=== PATIENT | female | born 1955 | race Two or more races ===

== ENCOUNTER → 2021-02-08 | Outpatient (REF) | LOC: M LABSMTC 10:25 | PROVIDERS: ATTEND Pediatrics | DX: Z20.822 Contact with and (suspected) exposure to COVID-19 (principal) ==

== ENCOUNTER → 2022-01-07 | Outpatient (CLI) | payer MEDICARE, OTHER ==
[~2022-01-07] MED LIST: ISOVUE-370 76% 100ML VIAL As Ordered ONE
== END ==
LOC: M RAD 14:47
PROVIDERS: ATTEND Internal Medicine
DX: I77.1 Stricture of artery (principal); K76.0 Fatty (change of) liver, not elsewhere classified; R91.1 Solitary pulmonary nodule
CPT/HCPCS: 71275; Q9967

== ENCOUNTER 2024-02-18 14:05 | Emergency (ER) | payer MEDICARE, OTHER ==
[~2024-02-18] VITALS: Ht 165.1 cm; Wt 82.6 kg
[2024-02-18 14:50] LABS: BASO % 0.2 % (0.0-1.0); EOS % 0.3 % (0.0-3.0); HEMATOCRIT 44.8 % (36.0-47.0); HEMOGLOBIN 16.1 g/dl (12.0-15.5); LYMPH # 2.1 10^3/uL (1.5-5.0); LYMPH % 23.5 % (24.0-44.0); MEAN CORPUSCULAR HEMOGLOBIN 32.9 pg (27.0-33.0); MEAN CORPUSCULAR HGB CONC 35.9 g/dl (32.0-36.5); MEAN CORPUSCULAR VOLUME 91.6 fl (80.0-96.0); MONO # 0.7 10^3/uL (0.0-0.8); MONO % 7.9 % (2.0-8.0); NEUTROPHILS % 67.8 % (36.0-66.0); PLATELET COUNT, AUTOMATED 179 10^3/uL (150-450); RED BLOOD COUNT 4.89 10^6/uL (4.00-5.40); WHITE BLOOD COUNT 8.9 10^3/uL (4.0-10.0)
[2024-02-18 15:16] LABS: CK-MB VALUE MASS < 1.0 NG/ML (<3.6); LIPASE 26 U/L (12-53)
[2024-02-18 15:19] LABS: ALBUMIN 4.4 G/DL (3.2-5.2); ALKALINE PHOSPHATASE 123 U/L (35-104); ALT/SGPT 45 U/L (7.0-40); AST/SGOT 55 U/L (<34); BILIRUBIN,DIRECT 0.2 MG/DL (<0.4); BILIRUBIN,TOTAL 0.7 MG/DL (0.3-1.2); BLOOD UREA NITROGEN 10 MG/DL (9-23); CALCIUM LEVEL 10.2 MG/DL (8.3-10.6); CARBON DIOXIDE LEVEL 24 MMOL/L (20-31); CHLORIDE LEVEL 99 MMOL/L (98-107); CPK CREATINE PHOSPHOKINASE 82 U/L (34-145); CREATININE FOR GFR 0.58 MG/DL (0.55-1.30); GLOMERULAR FILTRATION RATE > 60.0 (>39); GLUCOSE, FASTING 160 MG/DL (74-106); MB/CK RELATIVE INDEX 1.21 (< OR =4); POTASSIUM SERUM 3.6 MMOL/L (3.5-5.1); SODIUM LEVEL 137 MMOL/L (136-145); TOTAL PROTEIN 8.7 G/DL (5.7-8.2)
[2024-02-18 15:21] LABS: THYROID STIMULATING HORMONE 4.585 uIU/ML (0.55-4.78)
[2024-02-18] MEDS ORDERED: FLON1SPR NARES (16:11)
[2024-02-18] MEDS ORDERED: AMLO1TAB24 PO (16:11)
[2024-02-18] MEDS ORDERED: ROSU10TA61 PO (16:11)
[2024-02-18] MEDS ORDERED: MAGN200T PO (16:11)
[2024-02-18] MEDS ORDERED: ALBU8.5H INH (16:11)
[2024-02-18] MEDS ORDERED: B-12100020 PO (16:11)
[2024-02-18] MEDS ORDERED: LEVO75TA4 PO (16:11)
[2024-02-18] MEDS ORDERED: HOME MED LIST COMPLETE! XX SCH (16:15)
[2024-02-18 16:19] LABS: CK-MB VALUE MASS < 1.0 NG/ML (<3.6)
[2024-02-18 16:21] LABS: CPK CREATINE PHOSPHOKINASE 71 U/L (34-145)
[2024-02-18 16:45] VITALS: BP 166/77; TEMP 97.8; O2SAT 98
== END 2024-02-18 17:08 | disposition home or self-care (01) ==
LOC: M ED 14:05
DX: R00.2 Palpitations (principal); I10 Essential (primary) hypertension; I45.81 Long QT syndrome; F10.10 Alcohol abuse, uncomplicated; Z88.2 Allergy status to sulfonamides; Z88.8 Allergy status to other drugs, medicaments and biological substances; Z79.52 Long term (current) use of systemic steroids; Z79.899 Other long term (current) drug therapy